=== PATIENT | female | born 1950 | race Caucasian/White ===

== ENCOUNTER 2018-01-09 11:55 | Emergency (ER) | payer OTHER ==
[~2018-01-09] VITALS: Ht 170.2 cm; Wt 77.1 kg
[2018-01-09] MEDS ORDERED: HYDROcodone-ACET 10/325MG TAB PO ONE (14:30)
[2018-01-09 16:00] VITALS: BP 128/72
== END 2018-01-09 17:24 | disposition home or self-care (01) ==
LOC: ER 11:55
DX: S16.1XXA Strain of muscle, fascia and tendon at neck level, initial encounter (principal); V43.52XA Car driver injured in collision with other type car in traffic accident, initial encounter; Y93.89 Activity, other specified; Y92.488 Other paved roadways as the place of occurrence of the external cause; Y99.8 Other external cause status
CPT/HCPCS: 71250; 72125; 73030; 73562; 93005

== ENCOUNTER 2024-10-31 10:29 | Emergency (ER) | payer OTHER ==
[~2024-10-31] VITALS: Ht 167.6 cm; Wt 85.5 kg
[2024-10-31 10:57] VITALS: BP 130/79; PULSE 80; RESP 17; TEMP 98.9; O2SAT 95
--- NOTE | 2024-10-31 11:17 | ED.PDOC ---
History of Present Illness HPI Comments A 74 YEAR OLD FEMALE PRESENTS TO THE ED WITH COMPLAINT OF FLU-LIKE SYMPTOMS. PATIENT STATES SHE HAS BEEN EXPERIENCING A FEVER, NASAL CONGESTION, BODY ACHES, RIGHT EAR PAIN, NAUSEA, AND A HEADACHE OFF AND ON FOR THE PAST 3 DAYS. PATIENT REPORTS SHE HAS BEEN MANAGING HER FEVER WITH TYLENOL, BUT NOTES HER FEVER KEEPS RETURNING. PATIENT DENIES VISION CHANGES, SLURRED SPEECH, ONE-SIDED WEAKNESS, FACIAL DROOP, SHORTNESS OF BREATH, CHEST PAIN, ABDOMINAL PAIN, VOMITING, OR OTHER COMPLAINTS. NO OTHER SYMPTOMS OR MODIFYING FACTORS AT THIS TIME. PATIENT IS ALERT, ORIENTED X 4, AND HAS STEADY GAIT. Chief Complaint: Fever Time Seen by MD: 10:47 Reviewed Notes: Nurses Notes, Medications, Allergies Information Source: Patient Mode of Arrival: Ambulatory Timing: Days Duration: Intermittent, Days Prehospital treatment: None Severity: Moderate Fever: Oral Context: Recent: None Symptoms: Fever, Ear pain, Nasal symptoms Modifying Factors: Nothing Associated Signs and Symptoms: None Past Medical History PAST MEDICAL HISTORY: Asthma Past Medical History (Other): CHRONIC LOWER BACK PAIN, CHRONIC KNEE PAIN Surgical History: Denies all surgeries HAZMAT TECHNICIAN History: No Pertinent HAZMAT TECHNICIAN History Family History Family History: Reviewed,noncontributory to illness Social History Smoker: Non-Smoker Alcohol: Denies ETOH Use Drugs: Denies Drug Use Lives In: Home Constitutional: Fever EENTM: Ear Pain, Ear Ringing, Nose Congestion, Throat Pain Respiratory: No Symptoms Reported Cardiovascular: No Symptoms Reported Gastrointestinal: No Symptoms Reported Genitourinary: No Symptoms Reported Neurological: No Symptoms Reported Musculoskeletal: Muscle Pain Integumentary: No Symptoms Reported Allergic/Immunocompromised: others Hematologic/Lymphatic: No Symptoms Reported Endocrine: No Symptoms Reported Psychiatric: No symptoms Reported All Other Systems: Reviewed and Negative Physical Exam General Appearance: No Apparent Distress, Normal HEENT: PERRL/EOMI, Pharyngeal Erythema, Sinuses (TENDERNESS ON MAXILLARY SINUS WITH POST NASAL DRIP. ), TM Abnormal (L) (EFFUSION OF LEFT TM. ), TM Abnormal (R) (EFFUSION OF RIGHT TM. ) Neck: Full Range of Motion, Non-Tender, Normal, Normal Inspection Respiratory: Chest Non-Tender, Lungs Clear, No Accessory Muscle Use, No Respiratory Distress, Normal Breath Sounds Cardiovascular: No Edema, No JVD, No Murmur, No Gallop, Normal Peripheral Pulses, Regular Rate/Rhythm Breast Exam: Deferred Gastrointestinal: No Organomegaly, Non Tender, No Pulsatile Mass, Normal Bowel Sounds, Soft Genitalia: Deferred Pelvic: Deferred Rectal: Deferred Extremities: No calf tenderness, Normal capillary refill, Normal inspection, Normal range of motion, Non-tender, No pedal edema Musculoskeletal : Apperance: Normal Neurologic: Alert, relationship specialist II-XII nml as Tested, No Motor Deficits, Normal Affect, Normal Mood, No Sensory Deficits Cerebellar Function: Normal Reflexes: Normal Skin: Dry, Normal Color, Warm Peripheral Pulses: 2+ carotid (R), 2+ carotid (L) Lymphatic: No Adenopathy Was a procedure done? Was a procedure done?: No Fever Differential Dx Differential Diagnosis: UTI, Viral Syndrome, Pharyngitis Other Differential Diagnosis TONSILLITIS, OTITIS MEDIA, BRAIN MASS, BRAIN BLEED X-Ray, Labs, Meds, VS Vital Signs Date Time Temp Pulse Resp B/P (MAP) Pulse Ox O2 Delivery O2 Flow Rate FiO2 10/31/24 10:57 80 17 95 Room Air 10/31/24 10:57 98.9 80 17 130/79 (96) 95 98.9 10/31/24 10:49 98.4 80 17 130/74 (92) 95 Lab Test 10/31/24 10:55 Range/Units White Blood Count 5.1 4.4-10.8 10^3/uL Red Blood Count 4.37 4.0-5.20 10^6/uL Hemoglobin 13.0 12.2-16.2 g/dL Hematocrit 38.4 36.0-46.0 % Mean Corpuscular Volume 87.9 80.0-100.0 fL Mean Corpuscular Hemoglobin 29.7 28.0-32.0 pg Mean Corpuscular Hemoglobin Concent 33.8 32.0-36.0 g/dL Red Cell Distribution Width 14.2 11.8-14.3 % Platelet Count 247 140-450 10^3/uL Mean Platelet Volume 8.0 6.9-10.8 fL Neutrophils (%) (Auto) 55.8 37.0-80.0 % Lymphocytes (%) (Auto) 35.3 10.0-50.0 % Monocytes (%) (Auto) 5.0 0.0-12.0 % Eosinophils (%) (Auto) 3.0 0.0-7.0 % Basophils (%) (Auto) 0.9 0.0-2.0 % Neutrophils # (Auto) 2.9 1.6-8.6 10 ^3/uL Lymphocytes # (Auto) 1.8 0.4-5.4 10 ^3/uL Monocytes # (Auto) 0.3 0-1.3 10 ^3/uL Eosinophils # (Auto) 0.2 0-0.8 10 ^3/uL Basophils # (Auto) 0 0-0.2 10 ^3/uL Nucleated Red Blood Cells 0.1 % Sodium Level 140 136-145 mmol/L Potassium Level 3.5 3.5-5.1 mmol/L Chloride Level 104 98-107 mmol/L Carbon Dioxide Level 29 20-31 mmol/L Anion Gap 7 5-15 Blood Urea Nitrogen 13 9-23 mg/dL Creatinine 0.95 0.550-1.02 mg/dL Glomerular Filtration Rate Calc 64 >90 mL/min BUN/Creatinine Ratio 13.7 10.0-20.0 Serum Glucose 129 H 74-106 mg/dL Lactic Acid Level 1.1 0.4-2.0 mmol/L Calcium Level 9.9 8.7-10.4 mg/dL Current Medications Medications (Trade) Dose Ordered Sig/Mayte Route Start Time Stop Time Status Last Admin Acetaminophen (Tylenol Tablet) 1,000 mg ONCE ONCE PO 10/31/24 11:45 10/31/24 11:46 DC 10/31/24 11:57 Ceftriaxone Sodium (Rocephin) 1,000 mg ONCE ONCE IM 10/31/24 11:45 10/31/24 11:46 DC 10/31/24 11:57 EXAM: CT Head Without Intravenous Contrast CLINICAL INDICATION: HEADACHE TECHNIQUE: Axial computed tomography images of the head/brain without intravenous contrast. This CT exam was performed using one or more of the following dose reduction techniques: automated exposure control, adjustment of the mA and/or kV according to patient size, and/or use of iterative reconstruction technique. CONTRAST: COMPARISON: None FINDINGS: BRAIN AND EXTRA-AXIAL SPACES: The cerebral and cerebellar sulci are prominent consistent with brain atrophy. No acute intracranial hemorrhage, midline shift or mass effect. If symptoms persist, further evaluation with MRI is recommended. No significant white matter disease. BONES/JOINTS: Unremarkable. No acute fracture. SOFT TISSUES: Unremarkable. SINUSES: Mucosal thickening left maxillary sinus, likely sinus disease. MASTOID AIR CELLS: Unremarkable as visualized. No mastoid effusion. OTHER FINDINGS: . . .. IMPRESSION: 1. Generalized brain atrophy. 2. No acute intracranial hemorrhage, midline shift or mass effect. If symptoms persist, further evaluation with MRI is recommended. ATED BY: CHARISMA BUSTILLO MD DICTATED DATE/TIME: 10/31/24 1116 SIGNED BY: CHARISMA BUSTILLO MD SIGNED DATE/TIME: 10/31/24 1116 CC: XY CHEST TWO VIEWS ROUTINE CLINICAL HISTORY: FEVER COMPARISON: None TECHNIQUE: Frontal and lateral view of the chest was obtained FINDINGS: Lines and Tubes: None Lungs: No focal consolidation. Pleura: No effusion. No pneumothorax. Cardiomediastinal contours: Unremarkable Bones: No acute osseous abnormality. IMPRESSION: No acute cardiopulmonary disease. ATED BY: JEFFREY FONTENOT MD DICTATED DATE/TIME: 10/31/24 111 SIGNED BY: JEFFREY FONTENOT MD SIGNED DATE/TIME: 10/31/24 111 CC: X-Ray, Labs, Meds, VS Comment EXTERNAL MEDICAL RECORDS REVIEWED: [NONE] INDEPENDENT HISTORIANS: [NONE] SOCIAL DETERMINANTS OF HEALTH: [NONE] LABS ORDERED: CBC, BMP, LACTIC ACID W/REFLEX, BLOOD CULTURE, UA REVIEWED AND INTERPRETED RESULTS: NORMAL IMAGING ORDERED: CT BRAIN, XR CHEST TREATMENTS ORDERED: ROCEPHIN 1 G IM, TYLENOL 1 G P.O. PROCEDURES PERFORMED: NONE CRITICAL CARE TIME: NONE I HAVE DISCUSSED THE PATIENT WITH THE ATTENDING PHYSICIAN DR. FOSTER AND HE AGREES WITH THE PATIENT'S PLAN OF CARE AND DISPOSITION. BASED ON HISTORY OF PRESENT ILLNESS, AND PHYSICAL EXAM, PATIENT WILL BE DISCHARGED HOME. DISCUSSED PLAN FOR DISCHARGE HOME WITH RX []. MEDICATION WARNINGS GIVEN. SHARED DECISION MAKING: PATIENT INSTRUCTED TO FOLLOW UP WITH PRIMARY CARE PROVIDER IN 1-2 DAYS FOR RE-EVALUATION OF SYMPTOMS. PATIENT VERBALIZES UNDERSTANDING TO RETURN TO ED FOR NEW OR WORSENING SYMPTOMS OR IF FOLLOW UP WITH PCP CANNOT BE OBTAINED. PATIENT FEELS COMFORTABLE GOING HOME AT THIS TIME. ALL QUESTIONS ADDRESSED AT TIME OF DISCHARGE. Images Reviewed?: Images reviewed and evaluated by me Time of 1ST Reevaluation: 12:28 Reevaluation 1ST: Improved Patient Education/Counseling: Diagnosis, Treatment, Need For Follow Up Family Education/Counseling: Diagnosis, Treatment, Need For Follow Up Medical Screening: No EMC Exist At This Time Departure 1 Departure Time of Disposition: 12:28 Impression: Primary Impression: Otitis media of both ears Qualified Codes: H65.03 - Acute serous otitis media, bilateral Additional Impression: Acute sinusitis Qualified Codes: J01.00 - Acute maxillary sinusitis, unspecified Disposition: HOME / SELF CARE / HOMELESS Condition: Stable Additional Instructions: FOLLOW-UP WITH PCP IN 1 TO 2 DAYS. TAKE MEDICATIONS PRESCRIBED. RETURN TO ED FOR ANY NEW OR WORSENING SYMPTOMS. e-Prescriptions Ciprofloxacin-Hydrocortisone (Cipro Hc 0.2-1 %) 1 Emma Emma 4 DROP OT BID, #7.5 ML Prov: SAMANTHA VALENCIA 10/31/24 Methylprednisolone (Medrol Dosepak) 4 Mg Bobby 4 MG PO UD, #21 TAB UAD Prov: SAMANTHA VALENCIA 10/31/24 Amoxicillin & Pot Clavulanate (AUGMENTIN TABLET) 875 Mg Tb 875 MG PO BID, #20 TAB Prov: SAMANTHA VALENCIA 10/31/24 Discharged With: Self Critical Care Note Critical Care Time?: No Stability Stability form required: No I personally scribed for SAMANTHA VALENCIA ([email or web address]) on 10/31/24 at 11:17. Electronically submitted by David Borja ([email or web address]). I personally scribed for SAMANTHA VALENCIA ([email or web address]) on 10/31/24 at 11:20. Electronically submitted by Davdi Borja ([email or web address]). I personally scribed for SAMANTHA VALENCIA ([email or web address]) on 10/31/24 at 11:21. Electronically submitted by David Borja ([employer]). I personally scribed for SAMANTHA VALENCIA ([email or web address]) on 10/31/24 at 11:54. Electronically submitted by David Borja ([email or web address]). SAMANTHA VALENCIA Oct 31, 2024 11:17
[2024-10-31 11:37] LABS: Basophils # (auto) 0 10 ^3/uL (0-0.2); Basophils % (auto) 0.9 % (0.0-2.0); Eosinophils # (auto) 0.2 10 ^3/uL (0-0.8); Hematocrit 38.4 % (36.0-46.0); Lymphocytes # (auto) 1.8 10 ^3/uL (0.4-5.4); Lymphocytes % (auto) 35.3 % (10.0-50.0); Mean Corpuscular Hemoglobin 29.7 pg (28.0-32.0); Mean Corpuscular Hgb Conc. 33.8 g/dL (32.0-36.0); Mean Corpuscular Volume 87.9 fL (80.0-100.0); Monocytes # (auto) 0.3 10 ^3/uL (0-1.3); Neutrophils # (auto) 2.9 10 ^3/uL (1.6-8.6); Neutrophils % (auto) 55.8 % (37.0-80.0); Nucleated Red Blood Cells % 0.1 %; Platelet Count (auto) 247 10^3/uL (140-450); Red Blood Cells 4.37 10^6/uL (4.0-5.20); Red Cell Distribution Width 14.2 % (11.8-14.3); White Blood Cell 5.1 10^3/uL (4.4-10.8)
[2024-10-31 11:50] LABS: Chloride 104 mmol/L (98-107); Potassium 3.5 mmol/L (3.5-5.1); Sodium 140 mmol/L (136-145)
[2024-10-31 11:51] LABS: Anion Gap 7 (5-15); Carbon Dioxide 29 mmol/L (20-31)
[2024-10-31 11:52] LABS: Calcium 9.9 mg/dL (8.7-10.4)
[2024-10-31 11:56] LABS: BUN/Creatinine Ratio 13.7 (10.0-20.0); Blood Urea Nitrogen 13 mg/dL (9-23)
[2024-10-31] MEDS: ACETAMINOPHEN 325 MG TAB PO ONE (11:57)
[2024-10-31] MEDS: cefTRIAXone SOD 1,000 MG VL IM ONE (11:57)
[2024-10-31 11:59] LABS: Glucose 129 mg/dL (74-106)
[2024-10-31] MEDS ORDERED: METH4PAK PO (12:26)
[2024-10-31] MEDS ORDERED: CIPRSUS OT (12:26)
[2024-10-31] MEDS ORDERED: AUG875T PO (12:26)
== END 2024-10-31 12:29 | disposition home or self-care (01) ==
LOC: ER 10:29
DX: J01.80 Other acute sinusitis (principal); H66.93 Otitis media, unspecified, bilateral; J45.909 Unspecified asthma, uncomplicated
CPT/HCPCS: 36415; 70450; 71046; 80048; 83605; 85025; 87040; 96372; 99285; J0696

== ENCOUNTER 2024-12-23 12:34 | Inpatient (IN) | payer OTHER, MEDICARE ==
[~2024-12-23] VITALS: Ht 165.1 cm; Wt 86.5 kg
[~2024-12-23 12:34] MED LIST: AUG875T PO; CIPRSUS OT; METH4PAK PO
[2024-12-23 12:35] VITALS: PULSE 85; RESP 20; O2SAT 95
--- NOTE | 2024-12-23 12:40 | ED.PDOC ---
SOB-HPI HPI Comments 74 year old female JEFFREY presents to the ED with chief complaint of SOB. Patient reports that she has been experiencing SOB for the past 4 days along with associated cough, chest tightness, and nausea. Patient relays that she visited on Saturday and was prescribed Prednisone and Azithromycin, but no relief has been noted since taking her medication as prescribed. EMS states that they provided the patient 2 DuoNeb breathing treatments and 4L of O2 on route to the ED. Patient denies any chest pain, fever, chills, hemoptysis, dizziness, or headache. Time Seen by MD: 12:35 Primary Care Provider: none Reviewed notes: Nurses Notes, Type Bar And Segment Assembler Notes, Medications, Allergies Information Source: Patient, Emergency Med Personnel Mode of Arrival: EMS Severity: Moderate Timing: Days Duration: Since onset Context: At Rest PE Risk Factors: None History of: Asthma Prehospital treatment: Breathing Tx, Oxygen Modifying Factors: Nothing Associated Signs and Symptoms: Cough If cough with SOB: Productive, Clear Past Medical History PAST MEDICAL HISTORY: Asthma, High Lipids, HTN Surgical History: Hysterectomy, Tonsillectomy Surgical History (Other): Left shoulder surgery ECHO VASCULAR TECH History: No Pertinent ECHO VASCULAR TECH History Family History Family History: Reviewed,noncontributory to illness, Family hx of DM, Family hx of heart aye Social History Smoker: Non-Smoker Alcohol: Denies ETOH Use Drugs: Denies Drug Use Lives In: Home Constitutional: denies: chills, diaphoresis, fatigue, fever, malaise, sweats, weakness, others EENTM: denies: blurred vision, double vision, ear bleeding, ear discharge, ear drainage, ear pain, ear ringing, eye pain, eye redness, hearing loss, mouth pain, mouth swelling, nasal discharge, nose bleeding, nose congestion, nose pain, photophobia, tearing, throat pain, throat swelling, voice changes, others Respiratory: reports: cough, shortness of breath, others (Chest tightness); denies: hemoptysis, orthopnea, SOB at rest, SOB with excertion, stridor, wheezing Cardiovascular: denies: chest pain, dizzy spells, diaphoresis, Dyspnea on exertion, edema, irregular heart beat, left arm pain, lightheadedness, palpitations, PND, syncope, others Gastrointestinal: reports: nausea; denies: abdomen distended, abdominal pain, blood streaked bowels, constipated, diarrhea, dysphagia, difficulty swallowing, hematemesis, melena, poor appetite, poor fluid intake, rectal bleeding, rectal pain, vomiting, others Genitourinary: denies: abnormal vagina bleeding, burning, dyspareunia, dysuria, flank pain, frequency, hematuria, incontinence, pain, , vagina discharge, urgency, others Neurological: denies: dizziness, fainting, headache, left sided numbness, left sided weakness, numbness, paresthesia, pre-existing deficit, right sided numbness, right sided weakness, seizure, speech problems, tingling, tremors, weakness, others Musculoskeletal: denies: back pain, gout, joint pain, joint swelling, muscle pain, muscle stiffness, neck pain, others Integumetry: denies: bruises, change in color, change in hair/nails, dryness, laceration, lesions, lumps, rash, wounds, others Allergic/Immunocompromised: denies: Difficulty Healing, Frequent Infections, Hives, Itching, others Hematologic/Lymphatic: denies: anemia, blood clots, easy bleeding, easy bruising, swollen glands, others Endocrine: denies: excessive hunger, excessive sweating, excessive thirst, excessive urination, flushing, intolerance to cold, intolerance to heat, unexplained weight gain, unexplained weight loss, others Psychiatric: denies: anxiety, bipolar disorder, depression, hopeless, panic disorder, schizophrenia, sleepless, suicidal, others All Other Systems: Reviewed and Negative Physical Exam General Appearance: Moderate Distress, Obese HEENT: Normal ENT Inspection, Pharynx Normal, TMs Normal Neck: Full Range of Motion, Non-Tender, Normal, Normal Inspection Respiratory: Chest Non-Tender, Decreased Breath Sounds, No Accessory Muscle Use, Respiratory Distress, Wheezing Cardiovascular: No Edema, No JVD, No Murmur, No Gallop, Normal Peripheral Pulses, Regular Rate/Rhythm Breast Exam: Deferred Gastrointestinal: No Organomegaly, Non Tender, No Pulsatile Mass, Normal Bowel Sounds, Soft Genitalia: Deferred Pelvic: Deferred Rectal: Deferred Extremities: No calf tenderness, Normal capillary refill, Normal inspection, Normal range of motion, Non-tender, No pedal edema Musculoskeletal : Apperance: Normal Neurologic: Alert, hazardous substances engineer II-XII nml as Tested, Motor Weakness, Normal Affect, Normal Mood, No Sensory Deficits Cerebellar Function: Normal Reflexes: Normal Skin: Dry, Normal Color, Warm Lymphatic: No Adenopathy EKG EKG : Pulse Rate (adult): 84 [place]: Normal Cardiac Rhythm: NSR Block: None Hypertrophy: LVH ST: Normal Was a procedure done? Was a procedure done?: No Differential Dx Differential Diagnosis: Asthma, Pneumonia, Respiratory Distress X-Ray, Labs, Meds, VS Vital Signs Date Time Temp Pulse Resp B/P (MAP) Pulse Ox O2 Delivery O2 Flow Rate FiO2 12/23/24 13:02 78 11 136/50 (78) 94 12/23/24 12:40 84 12/23/24 12:39 97.7 86 20 138/72 (94) 91 97.7 12/23/24 12:35 97.7 84 20 136/50 (78) 94 97.7 12/23/24 12:35 85 20 95 Nasal Cannula* 2 28 12/23/24 12:34 84 Lab Test 12/23/24 13:55 12/23/24 13:00 Range/Units Troponin I High Sensitivity Pending < 3 L </=34 ng/L White Blood Count 3.5 L 4.4-10.8 10^3/uL Red Blood Count 4.22 4.0-5.20 10^6/uL Hemoglobin 12.6 12.2-16.2 g/dL Hematocrit 37.1 36.0-46.0 % Mean Corpuscular Volume 87.9 80.0-100.0 fL Mean Corpuscular Hemoglobin 29.8 28.0-32.0 pg Mean Corpuscular Hemoglobin Concent 33.9 32.0-36.0 g/dL Red Cell Distribution Width 14.6 H 11.8-14.3 % Platelet Count 187 140-450 10^3/uL Mean Platelet Volume 7.9 6.9-10.8 fL Neutrophils (%) (Auto) 78.7 37.0-80.0 % Lymphocytes (%) (Auto) 17.5 10.0-50.0 % Monocytes (%) (Auto) 3.6 0.0-12.0 % Eosinophils (%) (Auto) 0.0 0.0-7.0 % Basophils (%) (Auto) 0.2 0.0-2.0 % Neutrophils # (Auto) 2.7 1.6-8.6 10 ^3/uL Lymphocytes # (Auto) 0.6 0.4-5.4 10 ^3/uL Monocytes # (Auto) 0.1 0-1.3 10 ^3/uL Eosinophils # (Auto) 0 0-0.8 10 ^3/uL Basophils # (Auto) 0 0-0.2 10 ^3/uL Nucleated Red Blood Cells 0.0 % Sodium Level 141 136-145 mmol/L Potassium Level 3.4 L 3.5-5.1 mmol/L Chloride Level 105 98-107 mmol/L Carbon Dioxide Level 26 20-31 mmol/L Anion Gap 10 5-15 Blood Urea Nitrogen 12 9-23 mg/dL Creatinine 0.82 0.550-1.02 mg/dL Glomerular Filtration Rate Calc 76 >90 mL/min BUN/Creatinine Ratio 14.6 10.0-20.0 Serum Glucose 154 H 74-106 mg/dL Lactic Acid Level 1.5 0.4-2.0 mmol/L Calcium Level 9.8 8.7-10.4 mg/dL B-Type Natriuretic Peptide 77.52 0-100 pg/mL Current Medications Medications (Trade) Dose Ordered Sig/Mayte Route Start Time Stop Time Status Last Admin Methylprednisolone Sodium Succinate (Solu Medrol) 125 mg ONCE ONCE IV 12/23/24 12:45 12/23/24 12:46 DC 12/23/24 13:05 Chest XR indicates: No acute cardiopulmonary disease. The patient was given Solu-Medrol 125 mg IV push The patient was BNP is within normal limits The troponin levels negative The chemistry panel is within normal limits The CBC is within normal limits The patient was being admitted to the hospitalist. Images Reviewed?: Images reviewed and evaluated by me Time of 1ST Reevaluation: 14:08 Reevaluation 1ST: Unchanged Patient Education/Counseling: Diagnosis, Treatment, Prognosis Family Education/Counseling: No Family Present Additional Information -Reviewed patient's previous visit(s): 10/31/24 for bilateral otitis media - The following tests were ordered, and results were reviewed by me: Chest XR, CBC, CMP, D-Dimer, Troponin, EKG, Lactic, Influenza A/B, COVID-19, UA - Additional information was gathered from interviewing the following independent Historian: EMS - I reviewed and agreed with the following test results read by other provider: Chest XR - I discussed treatments and results with medical personnel and: patient Comprehensive systems review obtained and negative except for what is stated in the HPI. Departure 1 Departure Time of Disposition: 14:07 Impression: Primary Impression: Acute respiratory failure Qualified Codes: J96.01 - Acute respiratory failure with hypoxia Additional Impression: Status asthmaticus Qualified Codes: J45.52 - Severe persistent asthma with status asthmaticus Disposition: 09 ADMITTED INPATIENT Admit to: Tele Condition: Fair Critical Care Note Critical Care Time?: Yes (35 min-critical care time only) Stability Stability form required: Yes Unstable for transfer: Telemetry monitoring (Telemetry monitoring required), ED Physician Assesment (Clinical assesment) Heart Score Heart Score: Heart Score Response (Comments) Value History N/A 0 EKG N/A 0 Age N/A 0 Risk Factors N/A 0 Troponin N/A 0 Total 0 I personally scribed for AELXA LARSEN MD ([email or web address]) on 12/23/24 at 12:39. Electronically submitted by Erasmo Ray ([email or web address]). I personally scribed for ALEXA LARSEN MD ([email or web address]) on 12/23/24 at 12:51. Electronically submitted by Erasmo Ray ([email or web address]). I personally scribed for ALEXA LARSEN MD ([email or web address]) on 12/23/24 at 14:00. Electronically submitted by Erasmo Ray ([email or web address]). ALEXA LARSEN MD Dec 23, 2024 12:39
[2024-12-23] MEDS: methylPREDNISolone SOD SUCC 125 MG/2 ML VL IV ONE (13:05)
--- NOTE | 2024-12-23 13:05 | DVH ---
EXAM: XY CHEST PORTABLE Indication: sob Technique: Single frontal view of the chest was obtained Comparison: None FINDINGS: Lines and Tubes: None Lungs: No focal consolidation. Pleura: No effusion. No pneumothorax. Cardiomediastinal contours: Unremarkable Bones: No acute osseous abnormality. IMPRESSION: No acute cardiopulmonary disease.
[2024-12-23 13:28] LABS: Basophils # (auto) 0 10 ^3/uL (0-0.2); Basophils % (auto) 0.2 % (0.0-2.0); Eosinophils # (auto) 0 10 ^3/uL (0-0.8); Hematocrit 37.1 % (36.0-46.0); Hemoglobin 12.6 g/dL (12.2-16.2); Lymphocytes # (auto) 0.6 10 ^3/uL (0.4-5.4); Lymphocytes % (auto) 17.5 % (10.0-50.0); Mean Corpuscular Hemoglobin 29.8 pg (28.0-32.0); Mean Corpuscular Hgb Conc. 33.9 g/dL (32.0-36.0); Mean Corpuscular Volume 87.9 fL (80.0-100.0); Monocytes # (auto) 0.1 10 ^3/uL (0-1.3); Monocytes % (auto) 3.6 % (0.0-12.0); Neutrophils # (auto) 2.7 10 ^3/uL (1.6-8.6); Neutrophils % (auto) 78.7 % (37.0-80.0); Platelet Count (auto) 187 10^3/uL (140-450); Red Blood Cells 4.22 10^6/uL (4.0-5.20); Red Cell Distribution Width 14.6 % (11.8-14.3); White Blood Cell 3.5 10^3/uL (4.4-10.8)
[2024-12-23 13:33] LABS: Anion Gap 10 (5-15); Carbon Dioxide 26 mmol/L (20-31); Chloride 105 mmol/L (98-107); Sodium 141 mmol/L (136-145)
[2024-12-23 13:34] LABS: Calcium 9.8 mg/dL (8.7-10.4)
[2024-12-23 13:35] LABS: Potassium 3.4 mmol/L (3.5-5.1)
[2024-12-23 13:39] LABS: BUN/Creatinine Ratio 14.6 (10.0-20.0); Blood Urea Nitrogen 12 mg/dL (9-23)
[2024-12-23 13:40] LABS: Glucose 154 mg/dL (74-106)
[2024-12-23 14:40] LABS: Urine Bacteria FEW /hpf (None Seen); Urine Blood Negative /uL (Negative); Urine Clarity Clear (Clear); Urine Color Light-Yellow (Yellow); Urine Hyaline Cast FEW /lpf (0 - 2); Urine Protein, UAD Negative (Negative); Urine Specific Gravity 1.012 (1.001-1.035); Urine Squamous Epithelial Cell FEW /hpf (<5); Urine Urobilinogen Normal (Negative); Urine WBC 1 /HPF (0-5)
[2024-12-23 15:04] LABS: COVID19 ANTIGEN SOFIA FIA NEGATIVE (NEGATIVE)
[2024-12-23 15:05] LABS: Rapid Influenza A Negative (Negative); Rapid Influenza B Negative (Negative)
[2024-12-23] MEDS: ACETAMINOPHEN 325 MG TAB PO ONE (16:34)
--- NOTE | 2024-12-23 19:16 | ECG ---
[facility] Test Date: 2024-12-23 Test Time: 12:32:18 Pat Name: SOTO MARIA Department: ED Room: 0223 Gender: F Continuous Improvement Consultant: DEO : [id number] Requested By: ALEXA LARSEN Order Number: [id number] Reading MD: Carl Koenig Measurements Intervals [place] Rate: 84 P: 53 CO: 154 QRS: -17 QRSD: 99 T: 25 QT: 385 QTc: 456 Interpretive Statements Sinus rhythm Left ventricular hypertrophy Electronically Signed On 12-24-2024 20:54:57 PDT by Carl Koenig Please click the below link to view image of tracing.
[2024-12-23] MEDS ORDERED: MORPHINE SULFATE INJ 2 MG/ml SYRG IV PRN (20:00)
[2024-12-23] MEDS ORDERED: NITROGLYCERIN 0.4 MG SL TAB SL PRN (20:00)
[2024-12-23 21:05] VITALS: BP 156/56; PULSE 74; RESP 19; TEMP 98.4; O2SAT 94
[2024-12-23] MEDS: POTASSIUM CHL 20 Meq TABLET PO ONE (22:41)
[2024-12-23] MEDS: methylPREDNISolone SOD SUCC 40 MG/ML VL IV SCH (22:42)
--- NOTE | 2024-12-23 22:45 | DVHHP2 ---
History of Present Illness Reason for Visit: Shortness for breath History of Present Illness 74-year-old female presents for evaluation of shortness for breath. Patient reports a four day history of worsening shortness for breath with associated chest tightness. Reports having a cough with white phlegm. Denies fever or chills. No other acute complaints reported. Past Medical History Hypertension, dyslipidemia and asthma Past Surgical History Tonsillectomy, hysterectomy and left shoulder surgery Family History Noncontributory Smoke: No ALCOHOL: none Drugs: None Lives: with Family Review of Systems Review of Systems Review of systems are currently negative otherwise addressed in HPI. Allergies: Coded Allergies: NO KNOWN ALLERGIES (Unverified , 01/09/18) Medications Current Medications Medications Dose Ordered Sig/Mayte Route Start Time Stop Time Status Last Admin Dose Admin Albuterol 2.5 mg Q6HPRN PRN NEB 12/23/24 20:00 Ipratropium [place] 0.5 mg Q6HPRN PRN NEB 12/23/24 20:00 Nitroglycerin 0.4 mg Q5MINP PRN SL 12/23/24 20:00 Morphine Sulfate 2 mg Q30M PRN IV 12/23/24 20:00 Methylprednisolone Sodium Succinate 40 mg BID IV 12/23/24 22:00 Ondansetron HCl 4 mg Q4HP PRN IV 12/23/24 20:00 Acetaminophen 650 mg Q6HP PRN PO 12/23/24 20:00 Enoxaparin Sodium 40 mg DAILY SC 12/24/24 10:00 Exam Vital Signs Vital Signs Date Time Temp Pulse Resp B/P (MAP) Pulse Ox O2 Delivery O2 Flow Rate FiO2 12/23/24 21:05 98.4 74 19 156/56 94 4.0 36 98.4 12/23/24 12:35 Nasal Cannula* Exam Gen: 74-year-old female in mild distress. Skin: Warm, dry, normal color and texture, no rash. HEENT: Normocephalic atraumatic, mucous membranes moist and pink. Neck: Cervical and supraclavicular nodes normal without enlargement, trachea is midline, thyroid gland is normal without masses. Pulmonary: Bilateral wheeze. Cardiac: Regular rate and rhythm. No murmur Abdomen: Soft, nontender, nondistended, bowel sounds present all 4 quadrants, no guarding, no rigidity, no organomegaly. Extremities: No cyanosis, clubbing, no edema Neuro: Cranial nerves II through XII grossly intact, normal affect and speech, no focal motor deficits. Labs/Xrays ORDERING PHYSICIAN: ALEXA LARSEN MD PROCEDURE(s): CXRP - CHEST PORTABLE REASON: sob ORDER NUMBER(s): [id number], ACCESSION NUMBER(s): [id number] EXAM: XY CHEST PORTABLE Indication: sob Technique: Single frontal view of the chest was obtained Comparison: None FINDINGS: Lines and Tubes: None Lungs: No focal consolidation. Pleura: No effusion. No pneumothorax. Cardiomediastinal contours: Unremarkable Bones: No acute osseous abnormality. IMPRESSION: No acute cardiopulmonary disease. Labs Test 12/23/24 14:09 12/23/24 14:08 12/23/24 13:55 12/23/24 13:00 Range/Units Urine Color Light-yellow Yellow Urine Clarity Clear Clear Urine pH 6.0 5.0-9.0 Urine Specific [place] 1.012 1.001-1.035 Urine Protein Negative Negative Urine Ketones Negative Negative Urine Blood Negative Negative /uL Urine Nitrite Negative Negative Urine Bilirubin Negative Negative Urine Urobilinogen Normal Negative mg/dL Urine Leukocyte Esterase Trace Negative /uL Urine RBC 1 0 - 4 /hpf Urine Microscopic WBC 1 0-5 /HPF Urine Squamous Epithelial Cells Few <5 /hpf Urine Bacteria Few H None Seen /hpf Urine Hyaline Casts Few 0 - 2 /lpf Urine Glucose Normal Normal mg/dL Influenza Type A Antigen Negative Negative Influenza Type B Antigen Negative Negative SARS-CoV-2 Antigen (Rapid) Negative NEGATIVE Troponin I High Sensitivity < 3 L </=34 ng/L White Blood Count 3.5 L 4.4-10.8 10^3/uL Red Blood Count 4.22 4.0-5.20 10^6/uL Hemoglobin 12.6 12.2-16.2 g/dL Hematocrit 37.1 36.0-46.0 % Mean Corpuscular Volume 87.9 80.0-100.0 fL Mean Corpuscular Hemoglobin 29.8 28.0-32.0 pg Mean Corpuscular Hemoglobin Concent 33.9 32.0-36.0 g/dL Red Cell Distribution Width 14.6 H 11.8-14.3 % Platelet Count 187 140-450 10^3/uL Mean Platelet Volume 7.9 6.9-10.8 fL Neutrophils (%) (Auto) 78.7 37.0-80.0 % Lymphocytes (%) (Auto) 17.5 10.0-50.0 % Monocytes (%) (Auto) 3.6 0.0-12.0 % Eosinophils (%) (Auto) 0.0 0.0-7.0 % Basophils (%) (Auto) 0.2 0.0-2.0 % Neutrophils # (Auto) 2.7 1.6-8.6 10 ^3/uL Lymphocytes # (Auto) 0.6 0.4-5.4 10 ^3/uL Monocytes # (Auto) 0.1 0-1.3 10 ^3/uL Eosinophils # (Auto) 0 0-0.8 10 ^3/uL Basophils # (Auto) 0 0-0.2 10 ^3/uL Nucleated Red Blood Cells 0.0 % Sodium Level 141 136-145 mmol/L Potassium Level 3.4 L 3.5-5.1 mmol/L Chloride Level 105 98-107 mmol/L Carbon Dioxide Level 26 20-31 mmol/L Anion Gap 10 5-15 Blood Urea Nitrogen 12 9-23 mg/dL Creatinine 0.82 0.550-1.02 mg/dL Glomerular Filtration Rate Calc 76 >90 mL/min BUN/Creatinine Ratio 14.6 10.0-20.0 Serum Glucose 154 H 74-106 mg/dL Lactic Acid Level 1.5 0.4-2.0 mmol/L Calcium Level 9.8 8.7-10.4 mg/dL B-Type Natriuretic Peptide 77.52 0-100 pg/mL Assessment/Plan Assessment/Plan Assessment Acute on chronic respiratory failure Status asthmaticus Electrolyte imbalance Plan Admit the patient to Med surge to the hospitalist Med nebs Azithromycin Resume home medications Replete electrolytes Continue treatment per orders. Plan discussed with: Patient My Orders Orders - CONNOR WHITE AGACNP Procedure Category Date Status Time Albuterol Medneb PHA 12/23/24 In Process (Ventolin Medneb) 20:00 Ipratropium Medneb PHA 12/23/24 In Process (Atrovent Medneb) 20:00 Admit ADMIT 12/23/24 Transmitted 19:53 Nitroglycerin PHA 12/23/24 In Process Sublingual (Ntrostat 20:00 Morphine Sulfate PHA 12/23/24 In Process Injection 20:00 Stat Ekg For Chest DEL 12/23/24 In Process Pain 19:53 Notify Of Changes DEL 12/23/24 In Process From Base 19:53 Edge Runner For DEL 12/23/24 In Process 24 Hours 19:53 Emergency Dysrhythmia DEL 12/23/24 In Process Protocol 19:53 Rhythm Strips Once DEL 12/23/24 In Process Every Shift 19:53 Oxygen By Nasal RT 12/23/24 Transmitted Cannula 19:53 Methylprednisolone PHA 12/23/24 In Process Sod Succ (Solu Medrol 22:00 Basic Metabolic Panel LAB 12/24/24 Verified 04:00 Ondansetron Hcl PHA 12/23/24 In Process (Zofran) 20:00 Cardiac DIET 12/24/24 Transmitted Diet-2gna,Lofat,Lochol Breakfast Condition: Fair DEL 12/23/24 In Process 19:56 Acetaminophen Tablet PHA 12/23/24 In Process (Tylenol Tablet) 20:00 Bedrest With Bathroom DEL 12/23/24 In Process Privileg 19:56 Enoxaparin Sodium PHA 12/24/24 In Process (Lovenox) 10:00 Lisinopril Tablet PHA 12/24/24 Transmitted (Zestril Tablet) 10:00 Gabapentin Capsule PHA 12/23/24 Transmitted (Neurontin Capsule) 22:45 Date of Service: Dec 23, 2024 Billing Provider: CONNOR WHITE Common Visit Codes: [id number] INP/OBS CARE (HIGH) CONNOR WHITE Dec 23, 2024 22:44
[2024-12-23] MEDS: AZITHROMYCIN 500MG/ 250ML 250 ML IV ONE (23:22)
[2024-12-23] MEDS: GABAPENTIN 100 MG CAP PO ONE (23:22)
[2024-12-24] VITALS (16 sets, daily range): BP systolic 120–152; BP diastolic 51–76; PULSE 66–74; RESP 16–20; TEMP 98–98.3; O2SAT 94–99
[2024-12-24] MEDS ORDERED: GABA-1250 PO (00:55)
[2024-12-24] MEDS: MELATONIN 5 MG TAB PO ONE (01:45)
[2024-12-24] MEDS: LOPERAMIDE HCL 2 MG CAP/TAB PO ONE (05:38)
[2024-12-24] MEDS: ALBUTEROL SULF 2.5 MG/0.5ML(0.5%) NEB SOLN NEB PRN (06:07)
[2024-12-24] MEDS: IPRATROPIUM BROM 0.5 MG/2.5ML INH SOL NEB PRN (06:07)
[2024-12-24 06:54] LABS: Chloride 105 mmol/L (98-107); Potassium 3.7 mmol/L (3.5-5.1); Sodium 140 mmol/L (136-145)
[2024-12-24 06:55] LABS: Anion Gap 9 (5-15); Carbon Dioxide 26 mmol/L (20-31)
[2024-12-24 06:56] LABS: Calcium 9.5 mg/dL (8.7-10.4)
[2024-12-24 07:01] LABS: BUN/Creatinine Ratio 17.3 (10.0-20.0); Blood Urea Nitrogen 13 mg/dL (9-23)
[2024-12-24 07:02] LABS: Glucose 118 mg/dL (74-106)
[2024-12-24] MEDS ORDERED: ENOXAPARIN SOD 40 MG/0.4 ML SYRINGE SC SCH (10:00)
[2024-12-24] MEDS ORDERED: AZITHROMYCIN 500MG/ 250ML 250 ML IV SCH (10:00)
[2024-12-24] MEDS: PANTOPRAZOLE 40 MG/10 ML VIAL INJ IV ONE (10:30)
--- NOTE | 2024-12-24 10:38 | DVHPN2 ---
Progress Note Date Seen: Dec 24, 2024 Medical Necessity Reason Pt with a Central, PICC or Fol: No Subjective Patient reports: No new complaints Review of Systems: HEENT:Normal, CVS:Normal, RESPIRATORY:Normal, GI:Normal, :Normal, MSK:Normal, NEURO:Normal Objective vital signs Vital Sign Date Time Temp Pulse Resp B/P (MAP) Pulse Ox O2 Delivery O2 Flow Rate FiO2 12/24/24 08:30 98.1 70 19 148/64 (92) 95 98.1 12/24/24 06:07 Nasal Cannula 3.0 12/24/24 06:07 32 Total Intake and Output 12/23/24 12/23/24 12/24/24 15:00 23:00 07:00 Intake Total 240 ml Balance 240 ml medications Current Medications Medications Dose Ordered Sig/Mayte Route Start Time Stop Time Status Last Admin Dose Admin Albuterol 2.5 mg Q6HPRN PRN NEB 12/23/24 20:00 12/24/24 06:07 2.5 MG Ipratropium [place] 0.5 mg Q6HPRN PRN NEB 12/23/24 20:00 12/24/24 06:07 0.5 MG Nitroglycerin 0.4 mg Q5MINP PRN SL 12/23/24 20:00 Morphine Sulfate 2 mg Q30M PRN IV 12/23/24 20:00 Methylprednisolone Sodium Succinate 40 mg BID IV 12/23/24 22:00 12/23/24 22:42 40 MG Ondansetron HCl 4 mg Q4HP PRN IV 12/23/24 20:00 Acetaminophen 650 mg Q6HP PRN PO 12/23/24 20:00 Enoxaparin Sodium 40 mg DAILY SC 12/24/24 10:00 Lisinopril 10 mg DAILY PO 12/24/24 10:00 Azithromycin 250 ml @ 125 mls/hr DAILY IV 12/24/24 10:00 Examination: GENERAL:Normal, HEENT:Normal, NECK:Normal, LUNGS:Normal, LUNGS:Abnormal (on oxygen, rhonchi), CVS:Normal, ABDOMEN:Normal, MSK:Normal, SKIN:Normal, NEURO:Normal, :Normal laboratory and microbiology Laboratory Tests 12/24/24 05:59 12/23/24 13:00 Test 12/24/24 05:59 Range/Units Serum Glucose 118 H 74-106 mg/dL Problem List/Assessment/Plan Problem List/Assessment/Plan #1 acute resp failure: cont oxygen #2 diarrhea: check c diff #3 htn #4 ?pneumonia: doxy #5 obesity #6 anxiety #7 copd with exacerbation: solumedrol #8 peripheral neuropathy: gabapentin advance care planning- full code- time spent 19 mins Plan discussed with: Patient My Orders My Orders Orders - CONNOR GILMORE MD Procedure Category Date Status Time Clostridium Difficile ILA 12/24/24 Uncollected Toxin 10:28 Gabapentin Capsule PHA 12/24/24 Transmitted (Neurontin Capsule) 14:00 Discontinue Tele DEL 12/24/24 In Process 10:28 Albuterol Medneb PHA 12/24/24 Transmitted (Ventolin Medneb) 12:00 Ipratropium Medneb PHA 12/24/24 Transmitted (Atrovent Medneb) 12:00 Doxycycline Tablet PHA 12/24/24 Transmitted (Vibramycin Tablet) 22:00 Pantoprazole PHA 12/24/24 Transmitted (Protonix) 10:30 Pantoprazole PHA 12/25/24 Transmitted (Protonix) 10:00 Temazepam (Restoril) PHA 12/24/24 Transmitted 10:30 Metronidazole Tablet PHA 12/24/24 Transmitted (Flagyl Tablet) 14:00 Discontinue Tele DEL 12/24/24 In Process 10:28 Transfer Orders XFER 12/24/24 Transmitted 10:28 Date of Service: Dec 24, 2024 Billing Provider: CONNOR GILMORE MD Common Visit Codes: [id number] INP/OBS CARE(HIGH) Secondary Visit Codes: [id number] CARE PLAN 30 MINUTES CONNOR GILMORE MD Dec 24, 2024 10:38
[2024-12-24] MEDS: LISINOPRIL 5 MG TAB PO SCH (11:05)
[2024-12-24] MEDS ORDERED: HYDR-3682 PO (11:07)
[2024-12-24] MEDS ORDERED: OMEP20TA PO (11:15)
[2024-12-24] MEDS ORDERED: HYDR12.59 PO (11:15)
[2024-12-24] MEDS ORDERED: ONDA-155 PO (11:15)
[2024-12-24] MEDS ORDERED: LORA-622 PO (11:15)
[2024-12-24] MEDS: ALBUTEROL SULF 2.5 MG/0.5ML(0.5%) NEB SOLN NEB SCH (11:46)
[2024-12-24] MEDS: IPRATROPIUM BROM 0.5 MG/2.5ML INH SOL NEB SCH (11:46)
[2024-12-24] MEDS ORDERED: TROS20TA3 PO (15:50)
[2024-12-24] MEDS: GABAPENTIN 300 MG CAP PO SCH (16:00)
[2024-12-24] MEDS: metroNIDAZOLE 500 MG TAB PO SCH (16:00)
[2024-12-24] MEDS: DOXYCYCLINE 100 MG TAB/CAP PO SCH (21:31)
[2024-12-24] MEDS: TEMAZEPAM 15 MG CAP PO PRN (21:32)
[2024-12-24] MEDS: ONDANSETRON HCL 4 MG/2 ML VIAL IV PRN (21:41)
[2024-12-25] VITALS (15 sets, daily range): BP systolic 121–139; BP diastolic 41–67; PULSE 60–80; RESP 16–20; TEMP 97.5–98.2; O2SAT 93–99
[2024-12-25] MEDS: Trospium Chloride 20 MG PO SCH (10:00)
[2024-12-25] MEDS: PANTOPRAZOLE 40 MG/10 ML VIAL INJ IV SCH (10:53)
[2024-12-25] MEDS: LORATADINE 10 MG TAB PO SCH (10:54)
[2024-12-25] MEDS: ACETAMINOPHEN 325 MG TAB PO PRN (12:30)
--- NOTE | 2024-12-25 13:11 | DVHPN2 ---
Reviewed: Care Plan Changes from previous H/P or p: No Changes Objective Vitals Vital Signs Date Time Temp Pulse Resp B/P (MAP) Pulse Ox O2 Delivery O2 Flow Rate FiO2 12/25/24 12:54 97.5 72 20 123/52 (75) 94 97.5 12/25/24 11:07 Nasal Cannula* 3 32 Intake/Output Intake and Output 12/25/24 07:00 Intake Total 600 ml Balance 600 ml Intake Oral 600 ml # Voids 11 # Bowel Movements 11 Medications Current Medications Medications Dose Ordered Sig/Mayte Route Start Time Stop Time Status Last Admin Dose Admin Albuterol 2.5 mg Q6HPRN PRN NEB 12/23/24 20:00 12/24/24 06:07 2.5 MG Nitroglycerin 0.4 mg Q5MINP PRN SL 12/23/24 20:00 Morphine Sulfate 2 mg Q30M PRN IV 12/23/24 20:00 Methylprednisolone Sodium Succinate 40 mg BID IV 12/23/24 22:00 12/25/24 11:07 40 MG Ondansetron HCl 4 mg Q4HP PRN IV 12/23/24 20:00 12/24/24 21:41 4 MG Acetaminophen 650 mg Q6HP PRN PO 12/23/24 20:00 12/25/24 12:30 650 MG Lisinopril 10 mg DAILY PO 12/24/24 10:00 12/25/24 10:55 10 MG Gabapentin 300 mg TID PO 12/24/24 14:00 12/25/24 05:45 300 MG Albuterol 2.5 mg Q6HWA NEB 12/24/24 12:00 12/25/24 11:07 2.5 MG Ipratropium [place] 0.5 mg Q6HWA NEB 12/24/24 12:00 12/25/24 11:07 0.5 MG Doxycycline Monohydrate 100 mg Q12HR PO 12/24/24 22:00 12/25/24 10:55 100 MG Pantoprazole Sodium 40 mg DAILY IV 12/25/24 10:00 12/25/24 10:53 40 MG Temazepam 15 mg HSPRN PRN PO 12/24/24 10:30 12/24/24 21:32 15 MG Metronidazole 500 mg Q8HR PO 12/24/24 14:00 12/25/24 05:45 500 MG Loratadine 10 mg DAILY PO 12/25/24 10:00 12/25/24 10:54 10 MG Patient Own Medication 20 mg DAILY PO 12/25/24 10:00 Laboratory Results Laboratory Tests 12/23/24 13:00 12/24/24 05:59 Urinalysis Test 12/23/24 14:09 Urine Color Light-yellow (Yellow) Urine Clarity Clear (Clear) Urine pH 6.0 (5.0-9.0) Urine Specific [place] 1.012 (1.001-1.035) Urine Protein Negative (Negative) Urine Ketones Negative (Negative) Urine Blood Negative /uL (Negative) Urine Nitrite Negative (Negative) Urine Bilirubin Negative (Negative) Urine Urobilinogen Normal mg/dL (Negative) Urine Leukocyte Esterase Trace /uL (Negative) Urine RBC 1 /hpf (0 - 4) Urine Microscopic WBC 1 /HPF (0-5) Urine Squamous Epithelial Cells Few /hpf (<5) Urine Bacteria Few /hpf (None Seen) H Urine Hyaline Casts Few /lpf (0 - 2) Urine Glucose Normal mg/dL (Normal) Microbiology Microbiology Date/Time Source Procedure Growth Status 12/23/24 13:00 Blood Blood Culture - Preliminary NO GROWTH AFTER 24 HOURS OF INCUBATION. Resulted Labs and/or images reviewed: Labs reviewed by me, Image(s) reviewed by me Assessment/Plan Assessment/Plan Covering for Dr. Vazquez #1 acute resp failure: cont oxygen #2 diarrhea: C diff test pending #3 htn #4 Possible community-acquired pneumonia: doxy #5 obesity #6 anxiety #7 copd with exacerbation: solumedrol #8 peripheral neuropathy: gabapentin Plan discussed with: Patient Date of Service: Dec 25, 2024 Billing Provider: KRISTAN RENTERIA MD Common Visit Codes: [id number] INP/OBS CARE(HIGH) KRISTAN RENTERIA MD Dec 25, 2024 13:11
[2024-12-26] VITALS (18 sets, daily range): BP systolic 95–151; BP diastolic 49–59; PULSE 60–82; RESP 17–22; TEMP 97.5–98; O2SAT 91–99
--- NOTE | 2024-12-26 08:38 | DVHPN2 ---
Reviewed: Care Plan Changes from previous H/P or p: No Changes Objective Vitals Vital Signs Date Time Temp Pulse Resp B/P (MAP) Pulse Ox O2 Delivery O2 Flow Rate FiO2 12/26/24 08:00 73 20 96 Nasal Cannula* 5 40 12/26/24 05:00 97.9 115/49 (71) 97.9 Intake/Output Intake and Output 12/26/24 07:00 Intake Total 2280 ml Balance 2280 ml Intake Oral 2280 ml # Voids 9 Medications Current Medications Medications Dose Ordered Sig/Mayte Route Start Time Stop Time Status Last Admin Dose Admin Albuterol 2.5 mg Q6HPRN PRN NEB 12/23/24 20:00 12/24/24 06:07 2.5 MG Nitroglycerin 0.4 mg Q5MINP PRN SL 12/23/24 20:00 Morphine Sulfate 2 mg Q30M PRN IV 12/23/24 20:00 Methylprednisolone Sodium Succinate 40 mg BID IV 12/23/24 22:00 12/25/24 11:07 40 MG Ondansetron HCl 4 mg Q4HP PRN IV 12/23/24 20:00 12/24/24 21:41 4 MG Acetaminophen 650 mg Q6HP PRN PO 12/23/24 20:00 12/25/24 20:47 650 MG Lisinopril 10 mg DAILY PO 12/24/24 10:00 12/25/24 10:55 10 MG Gabapentin 300 mg TID PO 12/24/24 14:00 12/26/24 05:19 300 MG Albuterol 2.5 mg Q6HWA NEB 12/24/24 12:00 12/26/24 04:50 2.5 MG Ipratropium [place] 0.5 mg Q6HWA NEB 12/24/24 12:00 12/26/24 04:50 0.5 MG Doxycycline Monohydrate 100 mg Q12HR PO 12/24/24 22:00 12/25/24 21:38 100 MG Pantoprazole Sodium 40 mg DAILY IV 12/25/24 10:00 12/25/24 10:53 40 MG Temazepam 15 mg HSPRN PRN PO 12/24/24 10:30 12/25/24 21:38 15 MG Metronidazole 500 mg Q8HR PO 12/24/24 14:00 12/26/24 05:19 500 MG Loratadine 10 mg DAILY PO 12/25/24 10:00 12/25/24 10:54 10 MG Patient Own Medication 20 mg DAILY PO 12/25/24 10:00 Laboratory Results Laboratory Tests 12/23/24 13:00 12/24/24 05:59 Urinalysis Test 12/23/24 14:09 Urine Color Light-yellow (Yellow) Urine Clarity Clear (Clear) Urine pH 6.0 (5.0-9.0) Urine Specific [place] 1.012 (1.001-1.035) Urine Protein Negative (Negative) Urine Ketones Negative (Negative) Urine Blood Negative /uL (Negative) Urine Nitrite Negative (Negative) Urine Bilirubin Negative (Negative) Urine Urobilinogen Normal mg/dL (Negative) Urine Leukocyte Esterase Trace /uL (Negative) Urine RBC 1 /hpf (0 - 4) Urine Microscopic WBC 1 /HPF (0-5) Urine Squamous Epithelial Cells Few /hpf (<5) Urine Bacteria Few /hpf (None Seen) H Urine Hyaline Casts Few /lpf (0 - 2) Urine Glucose Normal mg/dL (Normal) Microbiology Microbiology Date/Time Source Procedure Growth Status 12/24/24 12:00 Stool Clostridium difficile Toxin Assay - Final Complete 12/23/24 13:00 Blood Blood Culture - Preliminary NO GROWTH AFTER 48 HOURS OF INCUBATION. Resulted Labs and/or images reviewed: Labs reviewed by me, Image(s) reviewed by me Assessment/Plan Assessment/Plan Covering for Dr. Vazquez #1 acute resp failure: cont oxygen #2 diarrhea: C diff negative, symptomatic treatment #3 htn #4 Possible community-acquired pneumonia: doxy, #5 obesity #6 anxiety #7 copd with exacerbation: solumedrol #8 peripheral neuropathy: gabapentin Flu test negative COVID test negative Patient is still feeling weak Plan discussed with: Patient Date of Service: Dec 26, 2024 Billing Provider: KRISTAN RENTERIA MD Common Visit Codes: [id number] INP/OBS CARE(HIGH) KRISTAN RENTERIA MD Dec 26, 2024 08:38
[2024-12-26] MEDS: methylPREDNISolone SOD SUCC 125 MG/2 ML VL IV SCH (10:21)
[2024-12-26] MEDS: ALBUTEROL SULF 2.5 MG/0.5ML(0.5%) NEB SOLN ONE (13:11)
[2024-12-26] MEDS: IPRATROPIUM BROM 0.5 MG/2.5ML INH SOL ONE (13:12)
[2024-12-26] MEDS ORDERED: ALBUTEROL SULF 2.5 MG/0.5ML(0.5%) NEB SOLN ONE ×3 (15:13→23:30)
[2024-12-26] MEDS ORDERED: IPRATROPIUM BROM 0.5 MG/2.5ML INH SOL ONE ×2 (17:54→23:30)
[2024-12-27] VITALS (18 sets, daily range): BP systolic 94–138; BP diastolic 52–125; PULSE 63–78; RESP 16–20; TEMP 97.2–98.6; O2SAT 92–96
[2024-12-27] MEDS: ALBUTEROL SULF 2.5 MG/0.5ML(0.5%) NEB SOLN ONE (06:35)
[2024-12-27] MEDS: IPRATROPIUM BROM 0.5 MG/2.5ML INH SOL ONE (06:35)
--- NOTE | 2024-12-27 08:51 | DVHPN2 ---
Reviewed: Care Plan Changes from previous H/P or p: No Changes Objective Vitals Vital Signs Date Time Temp Pulse Resp B/P (MAP) Pulse Ox O2 Delivery O2 Flow Rate FiO2 12/27/24 08:00 77 18 93 Nasal Cannula* 4 36 12/27/24 05:00 97.2 130/60 (83) 97.2 Intake/Output Intake and Output 12/27/24 07:00 Intake Total 4100 ml Balance 4100 ml Intake Oral 4100 ml # Voids 16 Medications Current Medications Medications Dose Ordered Sig/Mayte Route Start Time Stop Time Status Last Admin Dose Admin Albuterol 2.5 mg Q6HPRN PRN NEB 12/23/24 20:00 12/26/24 23:31 2.5 MG Nitroglycerin 0.4 mg Q5MINP PRN SL 12/23/24 20:00 Morphine Sulfate 2 mg Q30M PRN IV 12/23/24 20:00 Ondansetron HCl 4 mg Q4HP PRN IV 12/23/24 20:00 12/26/24 23:13 4 MG Acetaminophen 650 mg Q6HP PRN PO 12/23/24 20:00 12/26/24 21:26 650 MG Lisinopril 10 mg DAILY PO 12/24/24 10:00 12/26/24 10:22 10 MG Gabapentin 300 mg TID PO 12/24/24 14:00 12/27/24 06:31 300 MG Albuterol 2.5 mg Q6HWA NEB 12/24/24 12:00 12/27/24 06:35 2.5 MG Ipratropium [place] 0.5 mg Q6HWA NEB 12/24/24 12:00 12/27/24 06:35 0.5 MG Doxycycline Monohydrate 100 mg Q12HR PO 12/24/24 22:00 12/26/24 21:26 100 MG Pantoprazole Sodium 40 mg DAILY IV 12/25/24 10:00 12/26/24 10:20 40 MG Temazepam 15 mg HSPRN PRN PO 12/24/24 10:30 12/26/24 21:26 15 MG Metronidazole 500 mg Q8HR PO 12/24/24 14:00 12/27/24 06:31 500 MG Loratadine 10 mg DAILY PO 12/25/24 10:00 12/26/24 10:21 10 MG Patient Own Medication 20 mg DAILY PO 12/25/24 10:00 Methylprednisolone Sodium Succinate 40 mg BID IV 12/26/24 10:00 12/26/24 21:26 40 MG Laboratory Results Laboratory Tests 12/23/24 13:00 12/24/24 05:59 Urinalysis Test 12/23/24 14:09 Urine Color Light-yellow (Yellow) Urine Clarity Clear (Clear) Urine pH 6.0 (5.0-9.0) Urine Specific [place] 1.012 (1.001-1.035) Urine Protein Negative (Negative) Urine Ketones Negative (Negative) Urine Blood Negative /uL (Negative) Urine Nitrite Negative (Negative) Urine Bilirubin Negative (Negative) Urine Urobilinogen Normal mg/dL (Negative) Urine Leukocyte Esterase Trace /uL (Negative) Urine RBC 1 /hpf (0 - 4) Urine Microscopic WBC 1 /HPF (0-5) Urine Squamous Epithelial Cells Few /hpf (<5) Urine Bacteria Few /hpf (None Seen) H Urine Hyaline Casts Few /lpf (0 - 2) Urine Glucose Normal mg/dL (Normal) Microbiology Microbiology Date/Time Source Procedure Growth Status 12/24/24 12:00 Stool Clostridium difficile Toxin Assay - Final Complete 12/23/24 13:00 Blood Blood Culture - Preliminary NO GROWTH AFTER 72 HOURS OF INCUBATION. Resulted Labs and/or images reviewed: Labs reviewed by me, Image(s) reviewed by me Assessment/Plan Assessment/Plan Covering for Dr. Vazquez #1 acute resp failure: cont oxygen #2 diarrhea: C diff negative, symptomatic treatment #3 htn #4 Possible community-acquired pneumonia: doxy, #5 obesity #6 anxiety #7 copd with exacerbation: solumedrol #8 peripheral neuropathy: gabapentin #9 Anxiety: Patient requesting Vistaril which she takes at home Flu test negative COVID test negative Patient is still feeling weak complaining of congestion and cough CBC CMP ABG on room air to see if she qualifies for home oxygen chest x-ray ordered Plan discussed with: Patient My Orders Orders - KRISTAN RENTERIA MD Procedure Category Date Status Time Complete Blood Count LAB 12/28/24 Verified 04:00 Comprehensive LAB 12/28/24 Verified Metabolic Panel 04:00 Date of Service: Dec 27, 2024 Billing Provider: KRISTAN RENTERIA MD Common Visit Codes: [id number] INP/OBS CARE(HIGH) KRISTAN RENTERIA MD Dec 27, 2024 08:51
[2024-12-27] MEDS ORDERED: hydrOXYzine 25 MG TAB or CAP PO PRN (09:00)
--- NOTE | 2024-12-27 10:00 | DVH ---
EXAM: XR Chest, 1 View CLINICAL INDICATION: Shortness of breath TECHNIQUE: Frontal view of the chest. COMPARISON: XY CHEST PORTABLE on DOS: 12/23/24 FINDINGS: LUNGS AND PLEURAL SPACES: Left basilar atelectasis or pneumonia. No pneumothorax. HEART: Unremarkable. No cardiomegaly. MEDIASTINUM: Unremarkable. Normal mediastinal contour. BONES/JOINTS: Unremarkable. No acute fracture. OTHER FINDINGS: . IMPRESSION: Left basilar atelectasis or pneumonia.
[2024-12-27] MEDS: IPRATROPIUM BROM 0.5 MG/2.5ML INH SOL NEB SCH (18:24)
[2024-12-27] MEDS: ALBUTEROL SULF 2.5 MG/0.5ML(0.5%) NEB SOLN NEB SCH (18:24)
[2024-12-28] VITALS (9 sets, daily range): BP systolic 135–136; BP diastolic 60–66; PULSE 67–75; RESP 17–22; TEMP 36.5; O2SAT 90–97
[2024-12-28 07:05] LABS: Basophils # (auto) 0 10 ^3/uL (0-0.2); Eosinophils # (auto) 0 10 ^3/uL (0-0.8); Hematocrit 36.4 % (36.0-46.0); Hemoglobin 12.5 g/dL (12.2-16.2); Lymphocytes # (auto) 1.1 10 ^3/uL (0.4-5.4); Lymphocytes % (auto) 13.4 % (10.0-50.0); Mean Corpuscular Hemoglobin 30.6 pg (28.0-32.0); Mean Corpuscular Hgb Conc. 34.3 g/dL (32.0-36.0); Mean Corpuscular Volume 89.1 fL (80.0-100.0); Monocytes # (auto) 0.4 10 ^3/uL (0-1.3); Monocytes % (auto) 5.1 % (0.0-12.0); Neutrophils # (auto) 6.5 10 ^3/uL (1.6-8.6); Neutrophils % (auto) 81.5 % (37.0-80.0); Platelet Count (auto) 250 10^3/uL (140-450); Red Blood Cells 4.08 10^6/uL (4.0-5.20); Red Cell Distribution Width 14.5 % (11.8-14.3)
[2024-12-28 07:21] LABS: Alanine Aminotransferase 24 U/L (7-40); Albumin 4.2 g/dL (3.2-4.8); Alkaline Phosphatase 63 U/L (46-116); Anion Gap 8 (5-15); Aspartate Aminotransferase 14 U/L (13-40); BUN/Creatinine Ratio 22.8 (10.0-20.0); Blood Urea Nitrogen 18 mg/dL (9-23); Calcium 9.4 mg/dL (8.7-10.4); Carbon Dioxide 27 mmol/L (20-31); Chloride 104 mmol/L (98-107); Potassium 4.1 mmol/L (3.5-5.1); Sodium 139 mmol/L (136-145); Total Protein 6.9 g/dL (5.7-8.2)
[2024-12-28 07:22] LABS: Bilirubin, Total 0.5 mg/dL (0.2-1.0); Glucose 124 mg/dL (74-106)
[2024-12-28 07:24] LABS: Base Excess 0.8 mmol/L (-2.0-3.0)
--- NOTE | 2024-12-28 09:32 | DVHPN2 ---
Reviewed: Care Plan Changes from previous H/P or p: No Changes Objective Vitals Vital Signs Date Time Temp Pulse Resp B/P (MAP) Pulse Ox O2 Delivery O2 Flow Rate FiO2 12/28/24 08:14 17 94 Nasal Cannula* 4 36 12/28/24 05:00 97.8 67 135/66 (89) 97.8 Intake/Output Intake and Output 12/28/24 07:00 Intake Total 2190 ml Balance 2190 ml Intake Oral 2190 ml # Voids 11 Medications Current Medications Medications Dose Ordered Sig/Mayte Route Start Time Stop Time Status Last Admin Dose Admin Albuterol 2.5 mg Q6HPRN PRN NEB 12/23/24 20:00 12/28/24 03:35 2.5 MG Nitroglycerin 0.4 mg Q5MINP PRN SL 12/23/24 20:00 Morphine Sulfate 2 mg Q30M PRN IV 12/23/24 20:00 Ondansetron HCl 4 mg Q4HP PRN IV 12/23/24 20:00 12/26/24 23:13 4 MG Acetaminophen 650 mg Q6HP PRN PO 12/23/24 20:00 12/27/24 20:11 650 MG Lisinopril 10 mg DAILY PO 12/24/24 10:00 12/27/24 10:47 10 MG Gabapentin 300 mg TID PO 12/24/24 14:00 12/28/24 05:23 300 MG Doxycycline Monohydrate 100 mg Q12HR PO 12/24/24 22:00 12/27/24 21:12 100 MG Pantoprazole Sodium 40 mg DAILY IV 12/25/24 10:00 12/27/24 10:00 40 MG Temazepam 15 mg HSPRN PRN PO 12/24/24 10:30 12/27/24 21:12 15 MG Metronidazole 500 mg Q8HR PO 12/24/24 14:00 12/28/24 05:23 500 MG Loratadine 10 mg DAILY PO 12/25/24 10:00 12/27/24 10:47 10 MG Patient Own Medication 20 mg DAILY PO 12/25/24 10:00 Methylprednisolone Sodium Succinate 40 mg BID IV 12/26/24 10:00 12/27/24 21:12 40 MG Hydroxyzine [place] 25 mg Q6HP PRN PO 12/27/24 09:00 Albuterol 2.5 mg Q4HWA [facility] 12/27/24 18:00 12/27/24 22:13 2.5 MG Ipratropium [place] 0.5 mg Q4HWA [facility] 12/27/24 18:00 12/27/24 22:13 0.5 MG Laboratory Results Laboratory Tests 12/28/24 06:08 Chemistry Test 12/28/24 06:08 Albumin 4.2 g/dL (3.2-4.8) Calcium Level 9.4 mg/dL (8.7-10.4) Total Protein 6.9 g/dL (5.7-8.2) LFT Test 12/28/24 06:08 Alanine Aminotransferase (ALT) 24 U/L (7-40) Alkaline Phosphatase 63 U/L (46-116) Aspartate Amino Transferase (AST) 14 U/L (13-40) Total Bilirubin 0.5 mg/dL (0.2-1.0) Urinalysis Test 12/23/24 14:09 Urine Color Light-yellow (Yellow) Urine Clarity Clear (Clear) Urine pH 6.0 (5.0-9.0) Urine Specific [place] 1.012 (1.001-1.035) Urine Protein Negative (Negative) Urine Ketones Negative (Negative) Urine Blood Negative /uL (Negative) Urine Nitrite Negative (Negative) Urine Bilirubin Negative (Negative) Urine Urobilinogen Normal mg/dL (Negative) Urine Leukocyte Esterase Trace /uL (Negative) Urine RBC 1 /hpf (0 - 4) Urine Microscopic WBC 1 /HPF (0-5) Urine Squamous Epithelial Cells Few /hpf (<5) Urine Bacteria Few /hpf (None Seen) H Urine Hyaline Casts Few /lpf (0 - 2) Urine Glucose Normal mg/dL (Normal) Blood Gas Results Test 12/28/24 07:16 Arterial Blood pH 7.472 (7.350-7.450) FiO2 % 21.0 Microbiology Microbiology Date/Time Source Procedure Growth Status 12/24/24 12:00 Stool Clostridium difficile Toxin Assay - Final Complete 12/23/24 13:00 Blood Blood Culture - Preliminary NO GROWTH AFTER 72 HOURS OF INCUBATION. Resulted Labs and/or images reviewed: Labs reviewed by me, Image(s) reviewed by me Assessment/Plan Assessment/Plan Covering for Dr. Vazquez #1 acute resp failure: cont oxygen #2 diarrhea: C diff negative, symptomatic treatment #3 htn #4 Possible community-acquired pneumonia: doxy, #5 obesity #6 anxiety #7 copd with exacerbation: solumedrol #8 peripheral neuropathy: gabapentin #9 Anxiety: Patient requesting Vistaril which she takes at home Flu test negative COVID test negative Repeat CBC normal CMP normal Chest x-ray shows mild left lower lobe pneumonia Patient did not qualify for home oxygen Patient feels better afebrile and wants to go home Plan discussed with: Patient My Orders Orders - KRISTAN RENTERIA MD Procedure Category Date Status Time Albuterol Medneb PHA 12/27/24 In Process (Ventolin Medneb) 18:00 Ipratropium Medneb PHA 12/27/24 In Process (Atrovent Medneb) 18:00 Date of Service: Dec 28, 2024 Billing Provider: KRISTAN RENTERIA MD Common Visit Codes: [id number] INP/OBS CARE(HIGH) KRISTAN RENTERIA MD Dec 28, 2024 09:32
[2024-12-28] MEDS ORDERED: DOXY-346 PO (09:34)
[2024-12-28] MEDS ORDERED: METH4PAK PO (09:34)
--- NOTE | 2024-12-28 09:36 | DVHDS2 ---
Discharge Summary Date of Admission Dec 23, 2024 at 19:53 Date of Discharge: Dec 28, 2024 Admitting Diagnosis COPD exacerbation Wounds: none Labs/Diagnostic Data: Laboratory Results Test 12/28/24 07:16 12/28/24 06:08 12/24/24 00:20 12/23/24 14:09 Blood Gas Specimen Type Arterial Blood Gas Sample Site Right radial Blood Gas Patient Temperature 37.0 Arterial Blood Date Drawn [id number] Arterial Blood pH 7.472 (7.350-7.450) Arterial Blood Partial Pressure CO2 33.4 mmHg (32.0-45.0) Arterial Blood Partial Pressure O2 59.0 mmHg (83.0-108.0) Arterial Blood HCO3 23.9 mmol/L (21.0-28.0) Arterial Blood Oxygen Saturation 89.7 % (94.0-98.0) Arterial Blood Base Excess 0.8 mmol/L (-2.0-3.0) Arterial Blood Oxyhemoglobin 89.1 % (94.0-98.0) Arterial Blood Carboxyhemoglobin 0.4 % (0.5-1.5) Arterial Blood Methemoglobin 0.3 % (0.0-1.5) Cj Test Yes Blood Gas Total Hemoglobin 13.40 g/dL (12.0-16.0) Blood Gas Modality Room air FiO2 % 21.0 White Blood Count 8.0 10^3/uL (4.4-10.8) Red Blood Count 4.08 10^6/uL (4.0-5.20) Hemoglobin 12.5 g/dL (12.2-16.2) Hematocrit 36.4 % (36.0-46.0) Mean Corpuscular Volume 89.1 fL (80.0-100.0) Mean Corpuscular Hemoglobin 30.6 pg (28.0-32.0) Mean Corpuscular Hemoglobin Concent 34.3 g/dL (32.0-36.0) Red Cell Distribution Width 14.5 % (11.8-14.3) Platelet Count 250 10^3/uL (140-450) Mean Platelet Volume 8.5 fL (6.9-10.8) Neutrophils (%) (Auto) 81.5 % (37.0-80.0) Lymphocytes (%) (Auto) 13.4 % (10.0-50.0) Monocytes (%) (Auto) 5.1 % (0.0-12.0) Eosinophils (%) (Auto) 0.0 % (0.0-7.0) Basophils (%) (Auto) 0.0 % (0.0-2.0) Neutrophils # (Auto) 6.5 10 ^3/uL (1.6-8.6) Lymphocytes # (Auto) 1.1 10 ^3/uL (0.4-5.4) Monocytes # (Auto) 0.4 10 ^3/uL (0-1.3) Eosinophils # (Auto) 0 10 ^3/uL (0-0.8) Basophils # (Auto) 0 10 ^3/uL (0-0.2) Nucleated Red Blood Cells 0.0 % Sodium Level 139 mmol/L (136-145) Potassium Level 4.1 mmol/L (3.5-5.1) Chloride Level 104 mmol/L (98-107) Carbon Dioxide Level 27 mmol/L (20-31) Anion Gap 8 (5-15) Blood Urea Nitrogen 18 mg/dL (9-23) Creatinine 0.79 mg/dL (0.550-1.02) Glomerular Filtration Rate Calc 79 mL/min (>90) BUN/Creatinine Ratio 22.8 (10.0-20.0) Serum Glucose 124 mg/dL (74-106) Calcium Level 9.4 mg/dL (8.7-10.4) Total Bilirubin 0.5 mg/dL (0.2-1.0) Aspartate Amino Transferase (AST) 14 U/L (13-40) Alanine Aminotransferase (ALT) 24 U/L (7-40) Alkaline Phosphatase 63 U/L (46-116) Total Protein 6.9 g/dL (5.7-8.2) Albumin 4.2 g/dL (3.2-4.8) D-Dimer, Quantitative 1.15 mg/L FEU (0.0-0.49) Urine Color Light-yellow (Yellow) Urine Clarity Clear (Clear) Urine pH 6.0 (5.0-9.0) Urine Specific [place] 1.012 (1.001-1.035) Urine Protein Negative (Negative) Urine Ketones Negative (Negative) Urine Blood Negative /uL (Negative) Urine Nitrite Negative (Negative) Urine Bilirubin Negative (Negative) Urine Urobilinogen Normal mg/dL (Negative) Urine Leukocyte Esterase Trace /uL (Negative) Urine RBC 1 /hpf (0 - 4) Urine Microscopic WBC 1 /HPF (0-5) Urine Squamous Epithelial Cells Few /hpf (<5) Urine Bacteria Few /hpf (None Seen) Urine Hyaline Casts Few /lpf (0 - 2) Urine Glucose Normal mg/dL (Normal) Test 12/23/24 14:08 12/23/24 13:55 12/23/24 13:00 Influenza Type A Antigen Negative (Negative) Influenza Type B Antigen Negative (Negative) SARS-CoV-2 Antigen (Rapid) Negative (NEGATIVE) Troponin I High Sensitivity < 3 ng/L (</=34) Lactic Acid Level 1.5 mmol/L (0.4-2.0) B-Type Natriuretic Peptide 77.52 pg/mL (0-100) Other Laboratory Tests 12/28/24 06:08 Brief Hx & Hospital Course: 74-year-old female with a history of hypertension anxiety COPD came in for shortness of breaths found to have acute hypoxic respiratory failure given oxygen. Possible community-acquired pneumonia treated with doxycycline COPD exacerbation treated with Solu-Medrol med neb treatment patient did not qualify for home oxygen flu test negative COVID test negative patient had some diarrhea C diff is negative diarrhea no controlled. Discharged home on doxycycline and Medrol Dosepak. She will follow up with the primary Dr. At the time of discharge she is afebrile and on room air. Consults/Reason for consult None Operations or Procedures None Condition at Discharge: Fair Final Diagnosis/Problems List #1 acute resp failure: cont oxygen #2 diarrhea: C diff negative, symptomatic treatment #3 htn #4 Possible community-acquired pneumonia: doxy, #5 obesity #6 anxiety #7 copd with exacerbation: solumedrol #8 peripheral neuropathy: gabapentin #9 Anxiety: Patient requesting Vistaril which she takes at home Flu test negative COVID test negative Discharge Disposition: Home Discharge Instruct/Medications Diet: Cardiac 2g Na,low cholest Activity: Light activity Follow Up/Referral: Follow up with the primary Dr in one week Resume all previous home medications including med neb treatment Medications: Doxycycline Medrol Dosepak Transmitted to [facility] Discharge Statement: "Patient was advised to return to the ER or call 911 if any headaches, dizziness, shortness of breath, chest pain, abdominal pain, bleeding, fevers, or worsening of medical condition. Patient was counseled about treatment plan, medications, possible side effects, patientverbalized understanding. All questions were answered to the best of my ability. This discharge took greater then 30 minutes in planning, reviewing documentation, counseling the patient, and discussing with other team members." ASSESSMENT ASSESSMENT Hospital Course Improved Assessment #1 acute resp failure: cont oxygen #2 diarrhea: C diff negative, symptomatic treatment #3 htn #4 Possible community-acquired pneumonia: doxy, #5 obesity #6 anxiety #7 copd with exacerbation: solumedrol #8 peripheral neuropathy: gabapentin #9 Anxiety: Patient requesting Vistaril which she takes at home Flu test negative COVID test negative Date of Service: Dec 28, 2024 Billing Provider: KRISTAN RENTERIA MD Common Visit Codes: 48313-DSH/OBS DISCH DAY >30min KRISTAN RENTERIA MD Dec 28, 2024 09:36
[2024-12-28] MEDS ORDERED: IPRIH INH (10:04)
== END 2024-12-28 12:26 | disposition home or self-care (01) | DRG 189 ==
LOC: EDBD 12:34 → ER 12:34 → OVERFLOW 19:53 → TELE-CENTR 19:55 → CENTRAL 12-24 10:48
PROVIDERS: ADMIT Family Medicine; ATTEND Family Medicine
DX: J96.20 Acute and chronic respiratory failure, unspecified whether with hypoxia or hypercapnia (principal); J18.9 Pneumonia, unspecified organism; J44.0 Chronic obstructive pulmonary disease with (acute) lower respiratory infection; J44.1 Chronic obstructive pulmonary disease with (acute) exacerbation; J45.902 Unspecified asthma with status asthmaticus; Z20.822 Contact with and (suspected) exposure to COVID-19; E87.8 Other disorders of electrolyte and fluid balance, not elsewhere classified; I10 Essential (primary) hypertension; E78.5 Hyperlipidemia, unspecified; G62.9 Polyneuropathy, unspecified; R19.7 Diarrhea, unspecified; F41.9 Anxiety disorder, unspecified; E66.9 Obesity, unspecified; Z90.710 Acquired absence of both cervix and uterus; Z68.31 Body mass index [BMI] 31.0-31.9, adult; Z79.899 Other long term (current) drug therapy
CPT/HCPCS: 36415; 36600; 71045; 80048; 80053; 81001; 82805; 83605; 83880; 84484; 85025; 85379; 87040; 87426; 87493; 87804; 93005; 94640; 96374; 99291; G0378; J2405; J2470